=== PATIENT | male | born 1950 | race Caucasian/White ===

== ENCOUNTER → 2017-03-28 | Outpatient (CLI) | payer MEDICARE, OTHER ==
[~2017-03-28] MED LIST: ACETAMINOPHEN650 M1 PO; ALLEGRA; ALLEGRA ALLERG180 MG PO; ASPIRIN; ASPIRIN81 M2 PO; CALCIUM; FENOFIBRATE145 M1 PO; FISH OIL 1,0001 CAP; FISH OIL 1,001000 M1 PO; LIPITOR40 MG PO; LIPO-FLAVONOID1 EACH PO; MULTI-VITAMIN1 TAB; PERCOCET 5-3251 TAB PO; SAW PALMETTO; SAW PALMETTO450 MG PO; VITAMIN B-12500 MCG PO; VYTORIN 10/20 T1 TAB; [UNRECOGNIZED DRUG - OTHER]; [UNRECOGNIZED DRUG - OTHER] PO
--- NOTE | ~2017-03-28 | CR63 ---
[facility]. [facility] A Service of [facility] RADIOLOGY TEXT RESULTS PATIENT: MAYELA MCGRAW LOCATION: [facility] : 46 UNIT #: [id number] AGE: [address]: Floyd Dempsey MD SEX: M ORDER DR: [id number] [place] [id number] O MR#: [id number] Acc #: [id number] NAME: MAYELA MCGRAW : 1950 SEX: M STUDY DATE/TIME: 03/28/2017 11:34 UNIT: [facility] ROOM: STUDY DESCRIPTION: CR Chest 2 View Attending Physician: Floyd Dempsey M.D. Referring Physician: Floyd Dempsey M.D. Ordering Physician: Floyd Dempsey M.D. Primary Care Physician: Roxanne Claros M.D. MEDICAL IMAGING REPORT This report is preliminary unless electronic signature is present. EXAM Chest 03/28/2017 [facility] HISTORY 66-year-old male patient with history of kidney cancer followup for metastatic disease. COMPARISON Chest 03/26/2016 FINDINGS Two-view chest demonstrates normal heart size. Hilar structures and mediastinal contours are preserved. Bilateral lungs remain expanded and clear. Nipple markers are again placed. Bony thorax appears intact. IMPRESSION Negative and stable chest. Dictated by... Baldo Ruffin M.D. THIS IS AN ELECTRONICALLY VERIFIED REPORT Baldo Ruffin M.D. at 03/28/2017 2:46 PM NEERAJB/karel TD: 03/28/2017 13:40 JOB #: [id number] MEDICAL IMAGING REPORT Page 1 of 1
[2017-03-28 11:58] LABS: ALBUMIN SERUM 4.1 g/dL (3.5-5.0); BILIRUBIN,TOTAL 0.6 mg/dL (0.2-2.0); CALCIUM SERUM 9.7 mg/dL (8.4-10.2); GLOM FILT RATE Estimated 33.3 mL/min (>60); POTASSIUM 4.1 mmol/L (3.5-5.1)
== END | disposition home or self-care (01) ==
LOC: SLAB 11:18
PROVIDERS: Urology
DX: C64.9 Malignant neoplasm of unspecified kidney, except renal pelvis (principal)
CPT/HCPCS: 36415; 71020; 80053